=== PATIENT | female | born 1970 | race Caucasian/White ===

== ENCOUNTER 2019-03-16 13:13 | Inpatient (IN) | payer OTHER ==
[~2019-03-16] VITALS: Ht 172.7 cm; Wt 140.6 kg
[2019-03-16] MEDS ORDERED: METFORMIN HCL500 MG PO (14:31)
[2019-03-16] MEDS ORDERED: TOPROL XL50 M1 PO (14:31)
[2019-03-16] MEDS ORDERED: TAPAZOLE10 MG PO (14:31)
[2019-03-16] MEDS ORDERED: NORVASC5 MG PO (14:32)
[2019-03-16] MEDS ORDERED: [UNRECOGNIZED DRUG - OTHER] PO (14:32)
[2019-03-16] MEDS ORDERED: VITAMIN D32000 UNI1 PO (14:33)
[2019-03-16] MEDS ORDERED: ECOTRIN81 MG (15:47)
[2019-03-18] MEDS ORDERED: CANDESARTAN CILE8 MG PO (08:31)
[2019-03-21] MEDS ORDERED: ULTRACET PO (10:30)
[2019-03-21] MEDS ORDERED: FLAGYL500MG PO (10:31)
[2019-03-21] MEDS ORDERED: COLACE100 MG PO (10:31)
== END 2019-03-21 10:49 | DRG 743 ==
LOC: O/R 03-18 07:00 → OB/GYN 03-18 07:07 → O/R 03-18 15:30 → OB/GYN 03-21 10:49
PROVIDERS: ADMIT Obstetrics & Gynecology
PROC: 0UT70ZZ Resection of Bilateral Fallopian Tubes, Open Approach (ICD-10-PCS; 2019-03-18)
PROC: 0USG0ZZ Reposition Vagina, Open Approach (ICD-10-PCS; 2019-03-18)
PROC: 0UT90ZZ Resection of Uterus, Open Approach (ICD-10-PCS; principal; 2019-03-18 07:00)
DX: D25.1 Intramural leiomyoma of uterus (principal); D25.2 Subserosal leiomyoma of uterus; D25.0 Submucous leiomyoma of uterus; N81.11 Cystocele, midline; N73.6 Female pelvic peritoneal adhesions (postinfective); Z88.0 Allergy status to penicillin